=== PATIENT | female | born 1930 | race Caucasian/White ===

== ENCOUNTER 2018-09-05 08:47 | Inpatient (IN) | payer OTHER, BC ==
[2018-09-05] MEDS ORDERED: diphenhydrAMINE 25 MG CAP PO ONE (08:50)
[2018-09-05] MEDS ORDERED: DIAZEPAM 5 MG TAB PO ONE (08:50)
[2018-09-05] MEDS ORDERED: ASPIRIN EC 325 MG TAB PO ONE (08:50)
[2018-09-05] MEDS ORDERED: NS 1,000 ML IV ONE (08:50)
[2018-09-05] MEDS ORDERED: FAMOTIDINE 20 MG TAB PO ONE (08:50)
[2018-09-05 09:48] LABS: PLATELET COUNT 222 10^3/uL (150-400)
[2018-09-05 10:03] LABS: PROTIME(PATIENT) 13.4 SEC (12.0-15.0)
--- NOTE | 2018-09-05 10:05 | CPEKG ---
Test Reason : OPEN Blood Pressure : / mmHG Vent. Rate : 067 BPM Atrial Rate : 067 BPM P-R Int : 213 ms QRS Dur : 103 ms QT Int : 419 ms P-R-T Axes : 029 002 160 degrees QTc Int : 443 ms Sinus rhythm Borderline prolonged RI interval Probable left atrial enlargement LVH w/ repol abnormalities, possible ischemia Confirmed by Logan Bethea ([id number]) on 09/05/2018 10:05:50 AM Referred By: Confirmed By:Logan Bethea
[2018-09-05] MEDS ORDERED: LIDOCAINE 1% 300 MG/30 ML SDV ONE (10:09)
[2018-09-05] MEDS ORDERED: fentaNYL 100 MCG/2 ML INJ ONE (10:09)
[2018-09-05] MEDS ORDERED: IOPAMIDOL (ISOVUE-370) 150 ML BTL IV ONE (10:10)
[2018-09-05] MEDS ORDERED: MIDAZOLAM 2 MG/2 ML VIAL ONE (10:10)
[2018-09-05] MEDS ORDERED: VERAPAMIL 5 MG/2 ML VIAL ONE (10:16)
[2018-09-05] MEDS ORDERED: HEPARIN 10,000 UNIT/10 ML MDV (1,000 UNIT/ML) ONE (10:16)
--- NOTE | 2018-09-05 10:47 | PDGENHP ---
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 Is scheduled for MVR tomorrow. Pertinent Past, Social, Family History: See my office note of 06/07/18. Relevant Physical Exam: A&O x 3. Lungs CTA. RRR w/o murmur. No edema.
--- NOTE | 2018-09-05 10:48 | PDPROPOC ---
Sedation Plan of Care Sedation Plan of Care: vital signs stable, mental status noted, patient educated of risks, benefits, alternatives, patient can tolerate sedation ASA Classification: ASA 2 Planned drugs: fentanyl, midazolam Mallampati Reference Image: Patient passed 3-3-2 rule?: Yes
--- NOTE | 2018-09-05 11:46 | PDGENHP ---
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 Rehman with progressive MR and asymmetric hypertrophic cardiomyopathy seen a few months ago at [facility] for surgical evaluation. Pt admitted today ahead of [facility] for risk stratification. Pt continue to c/o BARROS on minimal exertion as well as light headedness. Her BLE remain chronically swollen. She denies CP, palpitations, orthopnea, PND, abd fullness. She denies h /o stroke, renal issues, prior chest surgery, smoking, or ETOH abuse. History Information - Allergies/Home Medication List Allergies/Adverse Reactions: No Known Allergies Allergy (Verified 08/29/18 14:20) Home Medications: Atorvastatin Calcium [Lipitor 20 mg (*)] 20 mg PO DAILY 08/29/18 [Last Taken Unknown] Calcium Carb W/Vit D [Calcium Carb W/Vit D 500/200 (*)] 500 mg PO DAILY [Last Taken Unknown] Cholecalciferol Vit D3 [Vitamin D3 2000 units tab (OTC)] 2,000 units PO DAILY [Last Taken Unknown] Furosemide [Lasix 20 MG (*)] 20 mg PO Q3D 08/29/18 [Last Taken Unknown] Losartan Potassium [Cozaar 25 mg (*)] 25 mg PO DAILY 08/29/18 [Last Taken Unknown] Metoprolol Succinate Xr [Toprol Xl 50 mg (*)] 50 mg PO BID 08/29/18 [Last Taken Unknown] [place]-3 Fatty Acids [Fish Oil 1000 mg (*)] 1,000 mg PO DAILY 08/29/18 [Last Taken Unknown] Phenobarbital 2 tab PO HS 08/29/18 [Last Taken Unknown] Phenytoin Sodium Extended [Dilantin (*)] 200 mg PO HS 08/29/18 [Last Taken Unknown] amLODIPine BESYLATE [Norvasc 5 mg (*)] 5 mg PO DAILY 08/29/18 [Last Taken Unknown] I have personally reviewed and updated: medical history, social history, surgical history - Past Medical History Additional medical history: as per HPI - Surgical History Reports: no pertinent surgical hx - Social History Smoking Status: Never smoked Alcohol Use: None Drug Use: None Review of Systems Review of Systems: ROS: 10pt was reviewed & negative except for what was stated in HPI & below Physical Exam Physical Exam: Constitutional: no apparent distress, appears nourished, not in pain Eyes: anicteric sclera Ears, Nose, Mouth, Throat: moist mucous membranes, hearing normal, ears appear normal, no oral mucosal ulcers Cardiovascular: regular rate and rhythym, systolic murmur Respiratory: no respiratory distress, no rales or rhonchi, clear to auscultation Gastrointestinal: soft, non-tender abdomen Skin: warm, normal color, erythema Musculoskeletal: full muscle strength Neurologic: AAOx3 Psychiatric: interacting appropriately, not anxious, not encephalopathic, thought process linear Lab Data & Imaging Review 09/05/18 09:25 09/05/18 09:25 WBC 7.37 10^3/uL (3.80-9.50) 09/05/18 09:25 RBC 5.06 10^6/uL (4.18-5.33) 09/05/18 09:25 Hgb 15.9 g/dL (12.6-16.3) 09/05/18 09:25 Hct 47.5 % (38.0-47.0) H 09/05/18 09:25 MCV 93.9 fL (81.5-99.8) 09/05/18 09:25 MCH 31.4 pg (27.9-34.1) 09/05/18 09:25 MCHC 33.5 g/dL (32.4-36.7) 09/05/18 09:25 RDW 13.1 % (11.5-15.2) 09/05/18 09:25 Plt Count 222 10^3/uL (150-400) 09/05/18 09:25 MPV 9.7 fL (8.7-11.7) 09/05/18 09:25 Neut % (Auto) 55.7 % (39.3-74.2) 09/05/18 09:25 Lymph % (Auto) 33.1 % (15.0-45.0) 09/05/18 09:25 [place] % (Auto) 8.1 % (4.5-13.0) 09/05/18 09:25 Eos % (Auto) 2.0 % (0.6-7.6) 09/05/18 09:25 Baso % (Auto) 0.8 % (0.3-1.7) 09/05/18 09:25 Nucleat RBC Rel Count 0.0 % (0.0-0.2) 09/05/18 09:25 Absolute Neuts (auto) 4.10 10^3/uL (1.70-6.50) 09/05/18 09:25 Absolute Lymphs (auto) 2.44 10^3/uL (1.00-3.00) 09/05/18 09:25 Absolute Monos (auto) 0.60 10^3/uL (0.30-0.80) 09/05/18 09:25 Absolute Eos (auto) 0.15 10^3/uL (0.03-0.40) 09/05/18 09:25 Absolute Basos (auto) 0.06 10^3/uL (0.02-0.10) 09/05/18 09:25 Absolute Nucleated RBC 0.00 10^3/uL (0-0.01) 09/05/18 09:25 Immature Gran % 0.3 % (0.0-1.1) 09/05/18 09:25 Immature Gran # 0.02 10^3/uL (0.00-0.10) 09/05/18 09:25 PT 13.4 SEC (12.0-15.0) 09/05/18 09:25 INR 1.00 (0.83-1.16) 09/05/18 09:25 Sodium 141 mEq/L (135-145) 09/05/18 09:25 Potassium 3.8 mEq/L (3.5-5.2) 09/05/18 09:25 Chloride 107 mEq/L (97-110) 09/05/18 09:25 Carbon Dioxide 26 mEq/l (22-31) 09/05/18 09:25 Anion Gap 8 mEq/L (6-14) 09/05/18 09:25 BUN 14 mg/dL (7-23) 09/05/18 09:25 Creatinine 0.8 mg/dL (0.6-1.0) 09/05/18 09:25 Estimated GFR > 60 09/05/18 09:25 Glucose 109 mg/dL (70-100) H 09/05/18 09:25 Hemoglobin A1c 5.7 % (4.0-6.0) 09/05/18 09:25 Estim Average Glucose 117 mg/dL (68-126) 09/05/18 09:25 Calcium 9.0 mg/dL (8.5-10.4) 09/05/18 09:25 Magnesium 1.8 mg/dL (1.6-2.3) 09/05/18 09:25 Triglycerides 111 mg/dL (35-135) 09/05/18 09:25 Cholesterol 193 mg/dL (140-220) 09/05/18 09:25 Cholesterol Risk Factr 0.4 (0.2-1.0) 09/05/18 09:25 LDL Cholesterol, Calc 92 mg/dL (80-100) 09/05/18 09:25 LDL Risk Factor 0.5 (0.2-1.0) 09/05/18 09:25 VLDL Cholesterol 22 mg/dL (8-25) 09/05/18 09:25 Non-HDL Cholesterol 114 mg/dL (90-129) 09/05/18 09:25 HDL Cholesterol 79 mg/dL (40-85) 09/05/18 09:25 LDL/HDL Ratio 1.16 RATIO (1.00-3.22) 09/05/18 09:25 Cholesterol/HDL Ratio 2.44 RATIO (1.00-4.44) 09/05/18 09:25 Patient ABO/Rh O NEGATIVE 09/05/18 09:25 Antibody Screen NEGATIVE 09/05/18 09:25 Imaging Review: - Carotids/CXR pending - [facility] today significant for: Mid PDA 80% lesion - 12/20/17 ECHO: EF 75%, severe MR, mild-mod TR, mild Visualized and Interpreted Chest x-ray results: No Chest X-Ray results: other (pending ) Visualized and Interpreted EKG results: Yes EKG Interpretation: Positive for: LVH, normal sinsus rhythm Assessment & Plan Plan: - Severe MR: MV repair/replace - HOCM: septal myectomy - Single-vessel significant CAD: probable bypass
[2018-09-05] MEDS ORDERED: NITROGLYCERIN 0.4 MG BTL SL PRN (11:53)
[2018-09-05] MEDS ORDERED: ONDANSETRON DISINTEGRATING 4 MG TAB PO PRN (11:53)
[2018-09-05] MEDS ORDERED: ATROPINE SULFATE 1 MG/10 ML SYR IVP PRN (11:53)
[2018-09-05] MEDS ORDERED: ONDANSETRON 4 MG/2 ML VIAL IVP PRN (11:53)
[2018-09-05] MEDS ORDERED: HYDROCODONE/APAP 5/325 TAB PO PRN (11:53)
[2018-09-05] MEDS ORDERED: ACETAMINOPHEN 325 MG TAB PO PRN (11:53)
[2018-09-05] MEDS ORDERED: NS 1,000 ML IV SCH (12:00)
--- NOTE | 2018-09-05 12:14 | PDDXCAT ---
Diagnostic Cath Note - . Date: 09/05/18 Prosthetic Dentist: Ori Indication: other (Cath to assess for CAD prior to MVR scheduled for 09/05/2018.) - Procedure Access: right groin (Procedure initiated from the right radial approach. However , a radioulnar loop and proximal tortuosity necessitated a switch to the femoral approach.) Procedure: left heart catheterization, coronary angiography, left ventriculogram - Materials Left Heart Cath size: 6F Left Heart Cath materials: standard multipack (JL4, JR4, pigtail) - Findings-Left Heart Catheterization LM: Normal. LAD: Proximal to mid-LAD with mild, [id number]-vopaewbl atherosclerosis. LCX: Proximal to mid-circumflex with mild, [id number]-jaqdhhjz atherosclerosis. RCA: Proximal to mid-RCA with mild, ngr-wfqz-zhwaglet atherosclerosis. Mid-PDA with a focal 80% lesion. EDP: 33 mmHg LVEF: > 75% with 3-4+ mitral regurgitation. Wall motion: Normal. Complications: None Estimated blood loss: <50ml Closure method: Angioseal Assessment: 1) CAD as described above. 2) Hyperdynamic LV systolic function.
--- NOTE | 2018-09-05 14:41 | PDMN ---
Medical Necessity Medical necessity: Pt meets IP criteria as of 09/05/2018 per and [facility] [place] [facility] ( cardiac valve replacement or repair) Mitral valve replacement, Medicare IP only procedure
[2018-09-05] MEDS ORDERED: hydrALAZINE 20 MG/ML VIAL IVP PRN (15:44)
[2018-09-05] MEDS ORDERED: PHENYTOIN SODIUM EXTENDED 100 MG CAP PO SCH (21:00)
[2018-09-05] MEDS ORDERED: PHENobarbital 30 MG TAB PO SCH (21:00)
[2018-09-05] MEDS ORDERED: CHLORHEXIDINE GLUC HIBICLENS 118 ML BTL TP SCH (21:00)
[2018-09-05] MEDS ORDERED: METOPROLOL SUCCINATE XR 50 MG TAB PO SCH (21:00)
[2018-09-06] MEDS ORDERED: MUPIROCIN 2% 22 GM OINT NS ONE (06:00)
[2018-09-06] MEDS ORDERED: VERAPAMIL 5 MG, NITROGLYCERIN 2.5 MG, HEPARIN 500 UNIT, SODIUM BICARBONATE 0.2 MEQ in L... MISC ONE (06:00)
[2018-09-06] MEDS ORDERED: AMINOCAPROIC ACID 5 GM/20 ML VIAL IV ONE (06:00)
[2018-09-06] MEDS ORDERED: niCARdipine/NACL 200 ML IV ONE (06:00)
[2018-09-06] MEDS ORDERED: CARDIOPLEGIC SOLUTION 1,052.8 ML PF ONE (06:00)
[2018-09-06] MEDS ORDERED: NOREPINEPHRINE BITARTRATE 16 MG in NS 250 ML IV ONE (06:00)
[2018-09-06] MEDS ORDERED: INSULIN REGULAR HUMAN 100 UNIT in NS 100 ML IV ONE (06:00)
[2018-09-06] MEDS ORDERED: MANNITOL 25% 12.5 GM/50 ML VIAL IVP ONE (06:00)
[2018-09-06] MEDS ORDERED: PHENYLEPHRINE HCL 50 MG in NS 250 ML IV ONE (06:00)
[2018-09-06] MEDS ORDERED: ceFAZolin 2 GM/DEXTROSE 100 ML IV ONE (06:00)
[2018-09-06] MEDS ORDERED: CITRATE DEXTROSE SOLN 500 ML BAG MISC ONE (06:00)
[2018-09-06 06:05] VITALS: BP 136/80
[2018-09-06] MEDS ORDERED: PHENYLEPHRINE 10 MG/ML SDV ONE (06:40)
[2018-09-06] MEDS ORDERED: EPINEPHrine 1 MG/ML INJ ONE (06:40)
[2018-09-06] MEDS ORDERED: SUCCINYLCHOLINE CHLORIDE 200 MG/10 ML SYR IVP ONE (06:41)
[2018-09-06] MEDS ORDERED: ROCURONIUM 100 MG/10 ML VIAL ONE (06:41)
[2018-09-06] MEDS ORDERED: PROPOFOL 200 MG/20 ML VIAL ONE (06:46)
[2018-09-06] MEDS ORDERED: LIDOCAINE 2% 2 ML INJ ONE ×3 (06:46→06:47)
[2018-09-06] MEDS ORDERED: fentaNYL 250 MCG/5 ML INJ ONE ×2 (06:46)
[2018-09-06] MEDS ORDERED: PROTAMINE SULFATE 50 MG/5 ML VIAL IVP ONE (06:47)
[2018-09-06] MEDS ORDERED: CALCIUM CHLORIDE 1 GM/10 ML INJ ONE ×2 (06:47→06:50)
[2018-09-06] MEDS ORDERED: MILRINONE/DEXTROSE/100 ML BAG IV ONE (06:48)
[2018-09-06] MEDS ORDERED: HEPARIN 10,000 UNIT/10 ML MDV (1,000 UNIT/ML) ONE ×2 (06:48→06:50)
[2018-09-06] MEDS ORDERED: niCARdipine/NACL/200 ML BAG IV ONE (06:48)
[2018-09-06] MEDS ORDERED: LR 1,000 ML IV ONE (06:48)
[2018-09-06] MEDS ORDERED: NA BICARBONATE 50 MEQ/50 ML VIAL ONE (06:48)
[2018-09-06] MEDS ORDERED: DOPamine/DEXTROSE 400 MG/250 ML BAG IV ONE (06:48)
[2018-09-06] MEDS ORDERED: SODIUM BICARBONATE 50 MEQ/50 ML SYR ONE (06:49)
[2018-09-06] MEDS ORDERED: ADENOSINE 6 MG/2 ML VIAL ONE (06:49)
[2018-09-06] MEDS ORDERED: ALBUMIN 5% 250 ML BOTTLE IV ONE (06:49)
[2018-09-06] MEDS ORDERED: AMIODARONE HCL 150 MG/3 ML VIAL ONE ×2 (06:49→06:50)
[2018-09-06] MEDS ORDERED: NITROGLYCERIN/D5W 50 MG/250 ML BOTTLE IV ONE (06:49)
[2018-09-06] MEDS ORDERED: ceFAZolin 1 GM VIAL ONE (06:49)
[2018-09-06] MEDS ORDERED: MAGNESIUM SULFATE 1 GM/2 ML VIAL ONE (06:50)
[2018-09-06] MEDS ORDERED: CITRATE DEXTROSE SOLN 500 ML BAG ONE (06:50)
[2018-09-06] MEDS ORDERED: LIDOCAINE 2% 100 MG/5 ML SYR ONE (06:50)
[2018-09-06] MEDS ORDERED: methylPREDNISolone SOD SUCC 1 GM/8 ML VIAL ONE (06:51)
--- NOTE | 2018-09-06 06:57 | PDANEPAE ---
ANE History of Present Illness mvr, cab ANE Past Medical History - Cardiovascular History Hx Hypertension: Yes Hx Arrhythmias: No Hx Chest Pain: No Hx Coronary Artery / Peripheral Vascular Disease: No Hx CHF / Valvular Disease: Yes Hx Palpitations: No - Pulmonary History Hx COPD: No Hx Asthma/Reactive Airway Disease: No Hx Recent Upper Respiratory Infection: No Hx Oxygen in Use at Home: No Hx Sleep Apnea: No Sleep Apnea Screening Result - Last Documented: Negative - Neurologic History Hx Cerebrovascular Accident: No Hx Seizures: Yes Hx Dementia: No Neurologic History Comment: EPILEPSY NO SEIZURE OVER 40 YEARS SINCE PLACED ON RX - Endocrine History Hx Diabetes: No Hypothyroid: No Hyperthyroid: No Obesity: mild - Renal History Hx Renal Disorders: No - Liver History Hx Hepatic Disorders: No - Neurological & Psychiatric Hx Hx Neurological and Psychiatric Disorders: No Neurological / Psychiatric History Comment: WORRIES ALOT - Cancer History Hx Cancer: Yes 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 CAN CHOKE EASILY AT TIMES-AIR,FOOD. DIZZINESS ALMOST DAILY WHICH CAN AFFECT BALANCE. FULL UPPER DENTURE. LOWER PARTIAL - Chronic Pain History Chronic Pain: No - Surgical History Prior Surgeries: LT ING HERNIA 2014. HYSTERECTOMY 1976. FERCHO 1993 ANE Review of Systems Review of Systems: - Exercise capacity METS (RN): 2 METS ANE Patient History - Allergies Allergies/Adverse Reactions: No Known Allergies Allergy (Verified 08/29/18 14:20) - Home Medications Home medications: home medication list seen and reviewed Home Medications: Atorvastatin Calcium [Lipitor 20 mg (*)] 20 mg PO DAILY 08/29/18 [Last Taken Unknown] Calcium Carb W/Vit D [Calcium Carb W/Vit D 500/200 (*)] 500 mg PO DAILY [Last Taken Unknown] Cholecalciferol Vit D3 [Vitamin D3 2000 units tab (OTC)] 2,000 units PO DAILY [Last Taken Unknown] Furosemide [Lasix 20 MG (*)] 20 mg PO Q3D 08/29/18 [Last Taken Unknown] Losartan Potassium [Cozaar 25 mg (*)] 25 mg PO DAILY 08/29/18 [Last Taken Unknown] Metoprolol Succinate Xr [Toprol Xl 50 mg (*)] 50 mg PO BID 08/29/18 [Last Taken Unknown] [place]-3 Fatty Acids [Fish Oil 1000 mg (*)] 1,000 mg PO DAILY 08/29/18 [Last Taken Unknown] Phenobarbital 2 tab PO HS 08/29/18 [Last Taken Unknown] Phenytoin Sodium Extended [Dilantin (*)] 200 mg PO HS 08/29/18 [Last Taken Unknown] amLODIPine BESYLATE [Norvasc 5 mg (*)] 5 mg PO DAILY 08/29/18 [Last Taken Unknown] - NPO status NPO Status: no food or drink >8 hours NPO Since - Liquids (Date): 09/05/18 NPO Since - Liquids (Time): 23:59 NPO Since - Solids (Date): 09/05/18 NPO Since - Solids (Time): 23:59 - Smoking Hx Smoking Status: Never smoked - Alcohol Use Alcohol Use: None ANE Labs/Vital Signs - Labs Result Diagrams: 09/05/18 09:25 09/05/18 09:25 - Vital Signs Blood Pressure: 136/80 Heart Rate: 61 Respiratory Rate: 16 O2 Sat (%): 98 Height: 162.56 cm Weight: 75.1 kg ANE Physical Exam - Airway Neck exam: FROM Mallampati Score: Class 2 Mouth exam: dentures - Pulmonary Pulmonary: no respiratory distress - Cardiovascular Cardiovascular: regular rate and rhythym - ASA Status ASA Status: III ANE Anesthesia Plan Anesthesia Plan: general endotracheal anesthesia Lines/Monitors: arterial line, central line, DIANA
[2018-09-06] MEDS ORDERED: MINERAL OIL 10 ML VIAL ONE (06:58)
[2018-09-06] MEDS ORDERED: VERAPAMIL 5 MG/2 ML VIAL ONE (06:58)
[2018-09-06] MEDS ORDERED: PAPAVERINE HCL 60 MG/2 ML SDV ONE (06:58)
[2018-09-06] MEDS ORDERED: MIDAZOLAM 2 MG/2 ML VIAL ONE (07:11)
--- NOTE | 2018-09-11 18:34 | GOP ---
DATE OF OPERATION: 09/06/2018 SURGEON: Virgil Hernandez DO HORSES [employer] MULES TEAMSTER: Tacos Nguyen PA-C ANESTHESIOLOGIST: Darek Lombardo MD PREOPERATIVE DIAGNOSIS: 1. Severe mitral insufficiency. 2. Hypertrophic cardiomyopathy with outflow tract obstruction. 3. Arteriosclerotic heart disease. 4. Congestive heart failure. POSTOPERATIVE DIAGNOSIS: 1. Severe mitral insufficiency. 2. Hypertrophic cardiomyopathy with outflow tract obstruction. 3. Arteriosclerotic heart disease. 4. Congestive heart failure. PROCEDURE PERFORMED: 1. Mitral valve replacement with a 25 mechanical [place] prosthesis. 2. Attempted repair of ventricular disruptions. 3. Atrial clip to the left atrial appendage, 40 mm. FINDINGS: Patient had severely symptomatic class III to IV congestive heart failure symptoms with ex treme dyspnea on exertion and limitations of activity. She was found to have HOCM with a 25 mm septu m; however, she had evidence of diffuse hypertrophy, including apical and lateral wall, as well as ex tremely large papillary muscles, almost obliterating the ventricular cavity. She was noted to have s evere mitral insufficiency, which was felt to be potentially secondary to HOCM, although there was so me calcification on the anterior leaflet and relative immobility of the posterior leaflet. She was c onsented for septal resection and papillary muscle repositioning; however, we also included mitral va lve replacement if we felt that would be the safer option. Because of her advanced age and additiona l coronary disease that was discovered preoperatively, we felt that the greatest risk was cardiopulmo nary bypass exposure. For that reason, we decided to do a resection of her anterior papillary muscle and anterior leaflet, and place a mechanical low-profile prosthesis and avoid septal resection in or cosme to alleviate the outflow tract obstruction. This was done, given her advanced age, and we felt t hat would be the lowest risk and quickest procedure on pump. She also needed bypass grafting. DESCRIPTION OF PROCEDURE: She was consented, brought to the operating room. Transesophageal echo co nfirmed preoperative findings. She underwent sternotomy. She was heparinized, cannulated with bicav al cannulas and ascending aortic vent. Cardiac arrest was obtained with antegrade cardioplegia and t he PDA was grafted with a piece of vein that was harvested endoscopically from the left thigh. It wa s a good quality distal vessel and good quality vein. We then exposed the mitral valve through the right superior pulmonary vein. A retractor was placed. The anterior leaflet was heavily calcified and thickened, and I felt that despite doing a HOCM surge ry with septal resection that she was still have an abnormal mitral valve with regurgitation. For th at reason, the anterior leaflet was excised. The anterior papillary muscle was excised down into the cavity. The LV chamber was copiously irrigated. The majority of the posterior leaflet was left int act. We then placed circumferential sutures, secured a 25 mm mechanical valve, closed the left atrium, cam e off bypass, and echo revealed malfunction of the valve with the posterior leaflet being stuck parti ally open. We re-arrested the heart, reopened the left atrium, at which point, a segment of papillar y muscle off the posterior wall was found stuck in the leaflet. This was excised without difficulty. We then closed the atrium again, came off bypass with excellent valvular function, good biventricul ar function. Her pressure sagged a little bit and she received some inotropics support temporarily a nd her pressure shot up to over 200/110 to 120. We had given protamine to reverse the heparin, and c annulas had been removed. At that point we had been off pump for 20 or 30 minutes, when all of a sudden, we saw bright red bloo d coming from the back of the pericardium. At this point, I rearrested the heart, went back and look ed, and there was ventricular tear away from the AV groove by about 3 cm in the lateral wall, likely due to hypertension away from any papillary muscles. It is difficult to explain or understand the et iology of it, except for maybe the high blood pressure and an elderly frail ventricle. Attempts to r epair it after taking out the valve were unsuccessful, and at that point, we decided to terminate the procedure. The patient in the OR. Chest was partially close for the still operator whiskey, and the famil y was brought in. /[id number]/MODL
--- NOTE | 2018-09-16 20:56 | GDS ---
DATE OF : 09/06/2018. HOSPITAL COURSE: Please refer to the previous office note from Dr. Virgil Hernandez, my dictated cardiac catheterization report, and Dr. Hernandez's cardiothoracic surgery report. Briefly, the patient was an [age]-year-old woman who had hypertrophic cardiomyopathy and severe mitral regurgitation. She was evalua sonu by the cardiothoracic surgery service and was felt to be an acceptable candidate for surgical rep lacement of her mitral valve along with resection of her hypertrophic obstruction. She was admitted on September 05 and underwent an elective cardiac catheterization which demonstrated normal left ventri cular systolic function, noncritical atherosclerosis of the left anterior descending and circumflex, and a focal 80% stenosis in the midportion of the posterior descending branch of the right coronary. On September 06, she was taken to the operating room. She underwent replacement of her mitral valve w ith a [place] mechanical valve. The patient was taken off cardiopulmonary bypass in preparation t o finish her surgical procedure. However, she developed a significant tear in the junction of the le ft ventricle and left atrium posteriorly. Attempts to repair this were unsuccessful, and the patient in the operating room. DISCHARGE DIAGNOSES: 1. Hypertrophic obstructive cardiomyopathy. 2. Severe mitral regurgitation. 3. Coronary artery disease. /[id number]/MODL
== END 2018-09-06 12:01 | disposition expired | DRG 217 ==
LOC: FCATH 08:47 → F2W 11:43 → F2N 09-06 07:46
PROVIDERS: ADMIT Thoracic Surgery (Cardiothoracic Vascular Surgery); ATTEND Thoracic Surgery (Cardiothoracic Vascular Surgery)
PROC: 4A023N7 Measurement of Cardiac Sampling and Pressure, Left Heart, Percutaneous Approach (ICD-10-PCS; 2018-09-05)
PROC: B2151ZZ Fluoroscopy of Left Heart using Low Osmolar Contrast (ICD-10-PCS; 2018-09-05)
PROC: B2111ZZ Fluoroscopy of Multiple Coronary Arteries using Low Osmolar Contrast (ICD-10-PCS; 2018-09-05)
PROC: 02L70CK Occlusion of Left Atrial Appendage with Extraluminal Device, Open Approach (ICD-10-PCS; principal; 2018-09-06 07:16)
PROC: 06BQ4ZZ Excision of Left Saphenous Vein, Percutaneous Endoscopic Approach (ICD-10-PCS; principal; 2018-09-06 07:16)
PROC: 5A1221Z Performance of Cardiac Output, Continuous (ICD-10-PCS; principal; 2018-09-06 07:16)
PROC: 02RG0JZ Replacement of Mitral Valve with Synthetic Substitute, Open Approach (ICD-10-PCS; principal; 2018-09-06 07:16)
PROC: 021009W Bypass Coronary Artery, One Artery from Aorta with Autologous Venous Tissue, Open Approach (ICD-10-PCS; principal; 2018-09-06 07:16)
DX: I34.0 Nonrheumatic mitral (valve) insufficiency (principal); I42.1 Obstructive hypertrophic cardiomyopathy; I25.10 Atherosclerotic heart disease of native coronary artery without angina pectoris; T82.09XA Other mechanical complication of heart valve prosthesis, initial encounter; I97.418 Intraoperative hemorrhage and hematoma of a circulatory system organ or structure complicating other circulatory system procedure; I97.3 Postprocedural hypertension; M62.18 Other rupture of muscle (nontraumatic), other site
CPT/HCPCS: C1760; C1768; C1769; J0153; J0171; J0282; J0330; J0690; J1265; J1644; J1815; J2001; J2150; J2250; J2260; J2370; J2440; J2704; J2720; J2930; J3010; J3475; P9041; Q9967